=== PATIENT | male | born 1975 | race African-American/Black ===

== ENCOUNTER 2018-05-25 17:42 | Emergency (ER) | payer OTHER ==
[~2018-05-25] VITALS: Ht 180.3 cm; Wt 75.3 kg
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
[2018-05-25] MEDS ORDERED: ROBAXIN500 MG PO (18:32)
[2018-05-25] MEDS ORDERED: LIDOCAINE700 M1 TP (18:32)
[2018-05-25] MEDS ORDERED: IBUPROFEN600 MG ORAL (18:32)
[2018-05-25 18:50] VITALS: BP 101/65
[2018-05-25 18:51] VITALS: BP 101/65
== END 2018-05-25 18:51 | disposition home or self-care (01) ==
LOC: EMR 18:44
DX: M54.2 Cervicalgia (principal); M54.9 Dorsalgia, unspecified; V43.62XA Car passenger injured in collision with other type car in traffic accident, initial encounter; Y92.410 Unspecified street and highway as the place of occurrence of the external cause
CPT/HCPCS: 99284